=== PATIENT | female | born 1960 | race Caucasian/White ===

== ENCOUNTER 2023-01-17 06:59 | Day surgery (SDC) | payer BC ==
[2023-01-06 14:42] VITALS: BMI 18.8
[~2023-01-17 06:59] MED LIST: Oxymetazoline HCl 0.05% ( 15 ML ) ONE
[2023-01-17] MEDS ORDERED: Scopolamine 1.5 mg/72 hour Patch ONE (09:14)
[2023-01-17] MEDS ORDERED: Oxymetazoline HCl 0.05% ( 15 ML ) ONE (09:35)
[2023-01-17] MEDS ORDERED: Fentanyl 100 MCG/2 ML VIAL ONE ×2 (10:44→12:23)
[2023-01-17] MEDS ORDERED: Ondansetron PF 4 MG/2 ML Vial ONE (10:44)
[2023-01-17] MEDS ORDERED: PROPOFOL 20 ML ONE (10:44)
[2023-01-17] MEDS ORDERED: Glycopyrrolate 0.2 MG/ML 5 ML SYRINGE ONE (10:44)
[2023-01-17] MEDS ORDERED: Rocuronium Bromide 10 MG/ML (10ML VIAL) ONE (10:44)
[2023-01-17] MEDS ORDERED: Dexamethasone 20 MG/5 ML VIAL ONE (10:44)
[2023-01-17] MEDS ORDERED: Midazolam HCl 2 mg/2 ml Vial ONE (10:44)
[2023-01-17] MEDS ORDERED: Mupirocin 2% Ointment 22 GM Tube ONE (11:09)
[2023-01-17] MEDS ORDERED: Lidocaine 1% w/Epinephrine 1:100K 20 ML VIAL ONE (11:12)
[2023-01-17] MEDS ORDERED: HYDROcodone/Acetaminophen 5/325 mg Tablet ONE (13:17)
== END 2023-01-17 13:50 | disposition home or self-care (01) ==
LOC: CSHSDC 06:59
PROVIDERS: ATTEND Otolaryngology Plastic Surgery within the Head & Neck
PROC: 09BL3ZZ Excision of Nasal Turbinate, Percutaneous Approach (ICD-10-PCS; principal; 2023-01-17)
PROC: 09BM3ZZ Excision of Nasal Septum, Percutaneous Approach (ICD-10-PCS; principal; 2023-01-17)
DX: J34.2 Deviated nasal septum (principal); J34.3 Hypertrophy of nasal turbinates; J34.89 Other specified disorders of nose and nasal sinuses; K21.9 Gastro-esophageal reflux disease without esophagitis; Z79.899 Other long term (current) drug therapy
CPT/HCPCS: J1100; J2250; J2405; J2704; J3010